=== PATIENT | male | born 1935 | race Caucasian/White ===

== ENCOUNTER 2018-02-18 18:30 | Inpatient (IN) | payer OTHER ==
[~2018-02-18] VITALS: Ht 170.2 cm; Wt 72.6 kg
[2018-02-18] MEDS ORDERED: LISINOPRIL20 MG (18:50)
[2018-02-18] MEDS ORDERED: OMEGA-3 + VITA200 ML (18:51)
[2018-02-18] MEDS ORDERED: TAMS0.4C (18:51)
[2018-02-18] MEDS ORDERED: METFORMIN HCL500 MG (18:51)
[2018-02-18] MEDS ORDERED: VITAMIN B-COMP1 EAC2 (18:52)
== END 2018-02-21 14:56 | disposition home or self-care (01) | DRG 379 ==
LOC: ER 18:30 → MEDJ 21:50
PROC: 30233N1 Transfusion of Nonautologous Red Blood Cells into Peripheral Vein, Percutaneous Approach (ICD-10-PCS; 2018-02-18)
PROC: 0W3P8ZZ Control Bleeding in Gastrointestinal Tract, Via Natural or Artificial Opening Endoscopic (ICD-10-PCS; principal; 2018-02-20)
DX: K55.21 Angiodysplasia of colon with hemorrhage (principal); D64.81 Anemia due to antineoplastic chemotherapy; C61 Malignant neoplasm of prostate; D50.0 Iron deficiency anemia secondary to blood loss (chronic); K62.7 Radiation proctitis; I10 Essential (primary) hypertension; N40.0 Benign prostatic hyperplasia without lower urinary tract symptoms; E11.9 Type 2 diabetes mellitus without complications; Z79.4 Long term (current) use of insulin